=== PATIENT | female | born 1980 | race Caucasian/White ===

== ENCOUNTER 2020-01-30 02:58 | Emergency (ER) | payer MEDICAID ==
[~2020-01-30] VITALS: Ht 160 cm; Wt 194.0 kg
[2020-01-30] MEDS ORDERED: KLON1TAB PO (03:15)
[2020-01-30] MEDS ORDERED: DURA1CAP PO (03:15)
[2020-01-30] MEDS ORDERED: HYDR1TAB33 PO (03:15)
[2020-01-30] MEDS ORDERED: TIZA4CAP PO (03:15)
[2020-01-30] MEDS ORDERED: IBUP1TAB6 PO (03:15)
[2020-01-30] MEDS ORDERED: PERC7.5T11 PO (03:15)
[2020-01-30] MEDS ORDERED: POTA10TA14 PO (03:15)
[2020-01-30] MEDS ORDERED: EFFE150C2 PO (03:15)
[2020-01-30] MEDS ORDERED: RA M10TA PO (03:17)
[2020-01-30] MEDS ORDERED: PROAAER10 INH (03:17)
[2020-01-30] MEDS ORDERED: SYMB16INH INH (03:17)
[2020-01-30] MEDS ORDERED: GABA800T4 PO (03:26)
[2020-01-30] MEDS ORDERED: CLAR10CA3 PO (03:26)
[2020-01-30] MEDS ORDERED: LEVO137T2 PO (03:26)
--- NOTE | 2020-01-30 04:15 | REPVR ---
PROCEDURE INFORMATION: Exam: XR Left Ankle Exam date and time: 01/30/2020 3:54 AM Age: 39 years old Clinical indication: Other: Fell down stairs; Additional info: Fell down stairs landing on ankle TECHNIQUE: Imaging protocol: XR Left ankle. Views: 3 or more views. COMPARISON: No relevant prior studies available. FINDINGS: Bones/joints: There is a transversely oriented fracture of the lateral malleolus just below the ankle joint line. There is mild comminution and minimal lateral displacement of the distal fragment relative to the proximal fibula. The ankle mortise appears symmetric. The distal tibia appears intact. There is an ankle joint effusion. A fracture of the 5th metatarsal and a fracture of the 4th metatarsal are noted, but are only included on the lateral view, and are not optimally assessed. Dedicated imaging of the foot is recommended for further assessment. Soft tissues: There is a large amount of soft tissue swelling on the lateral side of the ankle. IMPRESSION: 1. Transverse fracture of the lateral malleolus with minimal displacement. 2. Fractures of the 4th and 5th metatarsals which are not optimally assessed on this exam. X-ray exam of the left foot is recommended for further assessment. Electronically signed by: Christal Mcdonough On 01/30/2020 04:14:42 AM
[2020-01-30] MEDS ORDERED: NORCO, ANEXSIA 5/325MG TABLET (HYDROcodone/ACETAMINOPHEN) PO ONE (04:45)
[2020-01-30] MEDS ORDERED: [UNRECOGNIZED DRUG - SUPPLY] XX (05:42)
[2020-01-30 05:48] VITALS: BP 148/78
--- NOTE | 2020-01-30 07:14 | REP ---
INDICATION: trauma COMPARISON: None. TECHNIQUE: AP, lateral, bilateral oblique views left foot. FINDINGS: There is a transverse nondisplaced fracture at the proximal base 5th metatarsal bone and oblique nondisplaced fracture through the mid 4th metatarsal shaft. IMPRESSION: Nondisplaced fractures involving the 4th and 5th metatarsal bones. <Electronically signed by Jose Santos > 01/30/20 [id number]
== END 2020-01-30 05:49 | disposition home or self-care (01) ==
LOC: M ED 02:58
DX: S82.62XA Displaced fracture of lateral malleolus of left fibula, initial encounter for closed fracture (principal); S92.345A Nondisplaced fracture of fourth metatarsal bone, left foot, initial encounter for closed fracture; S92.355A Nondisplaced fracture of fifth metatarsal bone, left foot, initial encounter for closed fracture; S92.215A Nondisplaced fracture of cuboid bone of left foot, initial encounter for closed fracture; S92.002A Unspecified fracture of left calcaneus, initial encounter for closed fracture; W10.8XXA Fall (on) (from) other stairs and steps, initial encounter; Y92.098 Other place in other non-institutional residence as the place of occurrence of the external cause; Y93.89 Activity, other specified; Y99.8 Other external cause status; E07.9 Disorder of thyroid, unspecified; J44.9 Chronic obstructive pulmonary disease, unspecified; F32.9 Major depressive disorder, single episode, unspecified; F17.200 Nicotine dependence, unspecified, uncomplicated; Z88.0 Allergy status to penicillin; Z88.2 Allergy status to sulfonamides; Z88.8 Allergy status to other drugs, medicaments and biological substances; Z79.899 Other long term (current) drug therapy

== ENCOUNTER 2020-02-10 23:21 | Emergency (ER) | payer MEDICAID ==
[~2020-02-10] VITALS: Ht 160 cm; Wt 88.2 kg
[~2020-02-10 23:21] MED LIST: CLAR10CA3 PO; DURA1CAP PO; EFFE150C2 PO; GABA800T4 PO; HYDR1TAB33 PO; IBUP1TAB6 PO; KLON1TAB PO; LEVO137T2 PO; PERC7.5T11 PO; POTA10TA14 PO; PROAAER10 INH; RA M10TA PO; SYMB16INH INH; TIZA4CAP PO; [UNRECOGNIZED DRUG - SUPPLY] XX
[2020-02-10 23:22] VITALS: BP 137/86
== END 2020-02-10 23:36 | disposition left against medical advice (07) ==
LOC: M ED 23:21
DX: Z53.21 Procedure and treatment not carried out due to patient leaving prior to being seen by health care provider (principal)

== ENCOUNTER 2020-02-20 07:03 | Emergency (ER) | payer MEDICAID ==
[~2020-02-20] VITALS: Ht 160 cm; Wt 96.6 kg
[2020-02-20] MEDS ORDERED: TRIL600T PO (07:22)
[2020-02-20] MEDS ORDERED: NORCO, ANEXSIA 5/325MG TABLET (HYDROcodone/ACETAMINOPHEN) PO ONE (08:30)
[2020-02-20] MEDS ORDERED: NORC1TAB7 PO ×2 (09:08→09:12)
[2020-02-20 09:18] VITALS: BP 132/90
== END 2020-02-20 09:23 | disposition home or self-care (01) ==
LOC: M ED 07:03
DX: M79.672 Pain in left foot (principal); S92.902A Unspecified fracture of left foot, initial encounter for closed fracture; F17.200 Nicotine dependence, unspecified, uncomplicated; Z79.51 Long term (current) use of inhaled steroids; Z79.899 Other long term (current) drug therapy; Z79.1 Long term (current) use of non-steroidal anti-inflammatories (NSAID); Z88.1 Allergy status to other antibiotic agents; Z88.0 Allergy status to penicillin; Z88.2 Allergy status to sulfonamides; Z88.8 Allergy status to other drugs, medicaments and biological substances; Y92.9 Unspecified place or not applicable; Y93.9 Activity, unspecified; Y99.9 Unspecified external cause status

== ENCOUNTER 2020-02-23 17:30 | Emergency (ER) | payer MEDICAID ==
[~2020-02-23] VITALS: Ht 160 cm; Wt 88.2 kg
[2020-02-23 17:30] VITALS: BP 121/75
[~2020-02-23 17:30] MED LIST changes: +NORC1TAB7 PO; +TRIL600T PO
[2020-02-23] MEDS ORDERED: KETOROLAC 60MG 2ML VIAL IM ONE (18:15)
--- NOTE | 2020-02-23 18:39 | REP ---
INDICATION: fall. COMPARISON: Pre casting examination of 01/30/2020 TECHNIQUE: Four views with cast in place FINDINGS: Overlying casting material obscures the bony detail. Distal fibular fracture essentially unchanged. Fracture of the medial malleolus not seen on the prior exam. Fracture of the 5th metatarsal probably unchanged. IMPRESSION: As above <Electronically signed by Mark Barlow > 02/23/20 [id number]
--- NOTE | 2020-02-23 18:42 | REP ---
INDICATION: fall. COMPARISON: None. TECHNIQUE: AP and lateral views with cast in place. FINDINGS: See the ankle report. No additional findings on this limited exam. New fractures cannot be ruled out due to the casting material. CT suggested. IMPRESSION: As above. <Electronically signed by Mark Barlow > 02/23/20 [id number]
--- NOTE | 2020-02-23 18:44 | REP ---
INDICATION: fall. COMPARISON: Precast exam 01/30/2020 TECHNIQUE: Four views FINDINGS: . Overlying casting material obscures the bony detail. Fourth and 5th metatarsal fractures are again noted. Other fractures cannot be ruled out due to the casting material. See the ankle report. IMPRESSION: As above <Electronically signed by Mark Barlow > 02/23/20 [id number]
--- NOTE | 2020-02-23 18:46 | REP ---
INDICATION: fall. COMPARISON: None. None TECHNIQUE: A single AP view of the pelvis was performed. AP pelvis with AP and frog lateral views right hip FINDINGS: AP pelvis: The hip joint spaces are symmetric and relatively well maintained. There is no acute fracture or destructive osseous lesion. Right hip: No acute fracture, dislocation, or subluxation. IMPRESSION: No acute abnormality. <Electronically signed by Mark Barlow > 02/23/20 [id number]
[2020-02-23] MEDS ORDERED: NORCO, ANEXSIA 5/325MG TABLET (HYDROcodone/ACETAMINOPHEN) PO ONE (19:15)
== END 2020-02-23 20:29 | disposition left against medical advice (07) ==
LOC: M ED 17:30
DX: Z53.9 Procedure and treatment not carried out, unspecified reason (principal); S92.355D Nondisplaced fracture of fifth metatarsal bone, left foot, subsequent encounter for fracture with routine healing; S92.345D Nondisplaced fracture of fourth metatarsal bone, left foot, subsequent encounter for fracture with routine healing; S79.911A Unspecified injury of right hip, initial encounter; S99.912A Unspecified injury of left ankle, initial encounter; W19.XXXA Unspecified fall, initial encounter; Y92.099 Unspecified place in other non-institutional residence as the place of occurrence of the external cause; Y93.9 Activity, unspecified; Y99.9 Unspecified external cause status; J45.909 Unspecified asthma, uncomplicated; J44.9 Chronic obstructive pulmonary disease, unspecified; E03.9 Hypothyroidism, unspecified; F31.9 Bipolar disorder, unspecified; F41.9 Anxiety disorder, unspecified; F17.200 Nicotine dependence, unspecified, uncomplicated; E66.9 Obesity, unspecified; Z79.899 Other long term (current) drug therapy; Z88.0 Allergy status to penicillin; Z88.2 Allergy status to sulfonamides; Z88.8 Allergy status to other drugs, medicaments and biological substances
CPT/HCPCS: 73502; 73590; 73610; 73630; 96372; 99282; J1885